=== PATIENT | female | born 1985 ===

== ENCOUNTER 2021-02-08 10:54 | Emergency (ER) | payer OTHER ==
[~2021-02-08] VITALS: Ht 165.1 cm; Wt 57.5 kg
--- NOTE | 2021-02-08 11:14 | NUR ---
PT BIB SELF VIA POV. PER PT SHE WAS SEEN BY DR. ALTAMIRANO TODAY AND SHE RECOMMENDED HER TO COME TO ED TO GET RHOGAM SHOT AND HAVE SOME LABS DONE. PT IS 17WKS . . PT STATES SHE HAS HAD "VERY LITTLE" BLEEDING TODAY. PT REPORTS NO NEEDS AT THIS TIME.
[2021-02-08 12:40] LABS: BASOPHILS % (AUTO) 0 % (0-1); EOSINOPHILS % (AUTO) 0 % (1-7); LYMPHOCYTES % (AUTO) 16 % (22-44); MEAN CORPUSCULAR HGB CONC 35.7 g/dL (32.4-35.8); MONOCYTES % (AUTO) 4 % (2-9); NEUTROPHILS % (AUTO) 79 % (42-75); PLATELET COUNT 203 x10^3/uL (130-400); RED BLOOD COUNT 3.82 x10^6/uL (3.82-5.3); RED CELL DISTRIBUTION WIDTH 14.3 % (9.6-15.2)
[2021-02-08 13:19] LABS: FREE T4 (FREE THYROXINE) 1.19 ng/dL (0.76-1.46)
--- NOTE | 2021-02-08 14:22 | NUR ---
TOOK REPORT FROM FAREED SPAULDING, ASSUME CARE AT THIS TIME. SENT REQUEST FOR RHOGAM TO LAB
[2021-02-08 14:54] VITALS: BP 124/74
== END 2021-02-08 14:56 | disposition home or self-care (01) ==
LOC: ED 14:00
DX: O20.0 Threatened abortion (principal); Z3A.16 16 weeks gestation of pregnancy
CPT/HCPCS: 36415; 80074; 84439; 84443; 85025; 86592; 86762; 86850; 86900; 87806; 96372; 99283; J2790; G0475